=== PATIENT | male | born 1960 | race Caucasian/White ===

== ENCOUNTER 2019-02-16 19:00 | Outpatient (CLI) | payer OTHER | END 2019-02-16 19:01 | disposition home or self-care (01) | LOC: SLEEPLAB 19:00 | PROVIDERS: ATTEND Family Medicine | DX: G47.33 Obstructive sleep apnea (adult) (pediatric) (principal); R06.83 Snoring | CPT/HCPCS: 95806 ==

== ENCOUNTER 2019-04-08 19:30 | Outpatient (CLI) | payer OTHER | END 2019-04-08 19:31 | disposition home or self-care (01) | LOC: SLEEPLAB 19:30 | PROVIDERS: ATTEND Family Medicine | DX: G47.33 Obstructive sleep apnea (adult) (pediatric) (principal); R06.83 Snoring; R09.02 Hypoxemia | CPT/HCPCS: 95810 ==

== ENCOUNTER 2020-02-25 15:54 | Inpatient (IN) | payer OTHER ==
[~2020-02-25 15:54] MED LIST: Iopamidol 370 76% 100 ML VIAL ONE; Iopamidol 370 76% 50 ML VIAL FS ONE
[2020-02-25 16:07] LABS: Hemoglobin 14.9 g/dL (14.0-18.0); Mean Corpuscular HGB CONC 32.9 g/dL (32.0-36.0); Mean Corpuscular Hemoglobin 31.3 pg (27.0-31.0); Mean Corpuscular Volume 95.1 fL (78.0-98.0); RBC Distribution Width 12.7 % (11.5-14.5); Red Blood Cell (RBC) Count 4.77 mill/uL (4.70-6.10); White Blood Cell (WBC) Count 14.7 thou/uL (4.8-10.8)
[2020-02-25 16:22] LABS: Band 1 % (5-11); Eosinophils 3 % (0-10); Lymphocytes 22 % (21-51); MDiff Complete? YES; Monocytes 9 % (0-10); Neutrophil 61 % (42-75); Platelet Clumps SLIGHT; Platelet Morphology Comment PLT clumps seen-ADEQ; RBC Morphology Normal; Reactive Lymphocytes 4 % (0-10)
[2020-02-25 16:23] LABS: ALT (SGPT) 17 U/L (8-55); AST (SGOT) 19 U/L (5-34); Albumin 4.4 g/dL (3.5-5.0); Alkaline Phosphatase 44 U/L (40-110); Anion Gap 20 mmol/L (10-20); BUN (Urea Nitrogen) 16 mg/dL (8.4-25.7); Bilirubin, Total 0.4 mg/dL (0.2-1.2); Calc. Creatinine Clearance 0 mL/min (70-130); Calcium 9.2 mg/dL (7.8-10.44); Carbon Dioxide 17 mmol/L (22-29); Chloride 103 mmol/L (98-107); Estimated GFR-MDRD 61; Globulin 3.1 g/dL (2.4-3.5); Glucose 127 mg/dL (70-105); Protein, Total 7.5 g/dL (6.0-8.3); Sodium 136 mmol/L (136-145)
[2020-02-25 16:29] LABS: Mean Platelet Volume 7.6 fL (7.4-10.4); Platelet Count 213 thou/uL (130-400)
[2020-02-25 16:36] LABS: INR-International Normal Ratio 1.2
[2020-02-25 16:46] LABS: CKMB 1.6 ng/mL (0-6.6)
[2020-02-25 16:51] LABS: PTT Greater than 250.0 sec (22.9-36.1)
[2020-02-25] MEDS ORDERED: Mag-Al 1200 mg/1200 mg/30 ML UDCUP PO PRN (17:14)
[2020-02-25] MEDS ORDERED: Milk Of Magnesia 30 ML UDCUP PO PRN (17:14)
[2020-02-25 18:34] VITALS: BMI 23.5
[2020-02-25] MEDS: Sodium Chloride 0.9% 1,000 ML IV SCH (18:36)
[2020-02-25] MEDS: TICAGRELOR 90 MG TABLET PO SCH (20:49)
[2020-02-25 22:36] LABS: CKMB 224.3 ng/mL (0-6.6); Troponin I 39.249 ng/mL (< 0.028)
[2020-02-26] MEDS: Sodium Chloride 0.9% 1,000 ML IV SCH (01:00)
[2020-02-26 04:57] LABS: #Basophils 0.1 thou/uL (0.0-0.2); #Eosinphils 0.1 thou/uL (0.0-0.7); #Lymphocytes 1.8 thou/uL (1.20-3.40); #Monocytes 0.9 thou/uL (0.11-0.59); #Neutrophils 9.2 thou/uL (1.40-6.50); %Basophils 0.5 % (0.0-1.0); %Lymphocytes 14.9 % (21.0-51.0); %Monocytes 7.3 % (0.0-10.0); %Neutrophils 76.4 % (42.0-75.0); Hemoglobin 12.9 g/dL (14.0-18.0); Mean Corpuscular HGB CONC 33.1 g/dL (32.0-36.0); Mean Corpuscular Hemoglobin 31.1 pg (27.0-31.0); Mean Platelet Volume 8.7 fL (7.4-10.4); Platelet Count 178 thou/uL (130-400); RBC Distribution Width 12.7 % (11.5-14.5); Red Blood Cell (RBC) Count 4.15 mill/uL (4.70-6.10)
[2020-02-26 05:29] LABS: ALT (SGPT) 51 U/L (8-55); AST (SGOT) 153 U/L (5-34); Albumin 3.7 g/dL (3.5-5.0); Alkaline Phosphatase 38 U/L (40-110); Anion Gap 14 mmol/L (10-20); BUN (Urea Nitrogen) 10 mg/dL (8.4-25.7); Bilirubin, Total 0.4 mg/dL (0.2-1.2); Calc. Creatinine Clearance 89 mL/min (70-130); Calcium 8.3 mg/dL (7.8-10.44); Carbon Dioxide 20 mmol/L (22-29); Chloride 106 mmol/L (98-107); Estimated GFR-MDRD 86; Globulin 2.4 g/dL (2.4-3.5); Glucose 102 mg/dL (70-105); Potassium 4.1 mmol/L (3.5-5.1); Protein, Total 6.1 g/dL (6.0-8.3); Sodium 136 mmol/L (136-145)
[2020-02-26 05:40] LABS: CKMB 175.7 ng/mL (0-6.6); Troponin I 44.107 ng/mL (< 0.028)
[2020-02-26] MEDS ORDERED: Prevnar 13-Val Conj/PF 0.5 ML SYRINGE IM ONE (09:00)
[2020-02-26] MEDS ORDERED: FLU VACC QS2020-21(6MOS UP)/PF 60 MCG/0.5 ML SYRINGE IM ONE (09:00)
[2020-02-26] MEDS: TICAGRELOR 90 MG TABLET PO SCH ×2 (10:24→21:15)
[2020-02-26] MEDS ORDERED: Aspirin Chewable 81 MG TAB PO SCH (10:45)
--- NOTE | 2020-02-26 11:35 | CON ---
DATE OF CONSULTATION: HISTORY OF PRESENT ILLNESS: Ervin Padilla is a 59-year-old gentleman, admitted last night with chest pain, went to the cardiac labor arbitrator hearing office. Please review the Cardiology's note. He is now in the ICU with a pacemaker for bradycardia. The patient has a previous history of tobacco abuse, at least a pack a day and substance abuse. He has a history of sleep apnea, mild case, but apparently did not go back for any titration. ALLERGIES: ERYTHROMYCIN. PAST MEDICAL HISTORY: hypertension. PAST SURGICAL HISTORY: Recent catheterization. 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 HOME MEDICATIONS: None. REVIEW OF SYSTEMS: Otherwise, negative. PHYSICAL EXAMINATION: VITAL SIGNS: Pulse is 44, blood pressure 100/60, saturations . GENERAL: He is in no distress. CHEST: No wheezing. No crackles. CARDIAC: Normal S1, S2. No gallops. ABDOMEN: Soft. NEUROLOGIC: Awake, alert, and responsive. LABORATORY DATA: White count 12,000, H and H 12 and 39, platelet count 178. Lytes are normal. Troponin is elevated. BNP is 52. Chest x-ray, none done. ASSESSMENT: 1. Status post abnormal EKG, emergency cardiac cath. 2. Bradycardia. PLAN: Disposition as per Cardiology. Pulmonary is going to follow while in the ICU. Advised to refrain from smoking. He is advised to try and get himself on AutoPAP versus return back to the lab for CPAP titration. Consultation note, 70 minutes, 50% direct patient care. Job ID: [id number]
--- NOTE | 2020-02-26 12:59 | HP ---
CHIEF COMPLAINT: Acute WA. HISTORY OF PRESENT ILLNESS: Mr. Padilla is a very pleasant 59-year-old gentleman, who recently presented with acute-onset chest pain. This occurred 1 hour prior to presentation. He had ST-segment elevation noted inferiorly. PAST MEDICAL HISTORY: Tobacco abuse, hypertension. SOCIAL HISTORY: Positive tobacco use. 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 HOME MEDICATIONS: None. REVIEW OF SYSTEMS: A 10-point review of systems is reviewed as above, otherwise negative. PHYSICAL EXAMINATION: GENERAL: Patient is a pleasant 59-year-old gentleman, who is in no acute distress. The patient appears their stated age. VITAL SIGNS: Blood pressure 110/70, pulse 80, respirations 20. NEUROLOGIC: The patient is alert and oriented x3 with no focal neurologic deficits. HEENT: Sclerae without icterus. Mouth has moist mucous membranes with normal pallor. NECK: No JVD. Carotid upstroke brisk. No bruits bilaterally. LUNGS: Clear to auscultation with unlabored respirations. BACK: No scoliosis or kyphosis. CARDIAC: Regular rate and rhythm with normal S1 and S2. No S3 or S4 noted. No significant rubs, murmurs, thrills, or gallops noted throughout the precordium. PMI is not displaced. There is no parasternal heave. ABDOMEN: Soft, nontender, nondistended. No peritoneal signs present. No hepatosplenomegaly. No abnormal striae. EXTREMITIES: 2+ femoral and 2+ dorsalis pedis pulses. No cyanosis, clubbing, or edema. SKIN: No gross abnormalities. PERTINENT LABORATORY DATA: Pending. EKG shows normal sinus rhythm with acute ST-T wave changes noted inferiorly. IMPRESSION: Acute myocardial infarction. RECOMMENDATIONS: Mr. Padilla was brought urgently for coronary angiography. I discussed procedure in full detail with Mr. Padilla. Risks include, but not limited to the following: , stroke, [place], need for emergency surgery, loss of limb, bleeding, and infection, as well as a reaction to the dye causing kidney failure and needing long-term dialysis. I also discussed the risks of PCI to include all of the above including coronary dissection and perforation in addition to acute stent thrombosis and restenosis. All questions about the procedure were answered. Given the above, the patient agreed to proceed with coronary angiography and possible PCI. All questions answered. Given the above, the patient agreed to proceed with above procedure. Also, discussed drug coated versus nondrug coated stent placement. There were no contraindications. We will proceed if needed. Further recommendations pending the above. Job ID: [id number]
--- NOTE | 2020-02-26 13:03 | PRG ---
DATE OF SERVICE: 02/26/2020 SUBJECTIVE: Mr. Padilla is doing better. No current complaints of chest pain. Unfortunately, he remains bradycardic. His pacemaker intermittently beats per minute. OBJECTIVE: VITAL SIGNS: Blood pressure 143/62, pulse 44, temperature afebrile. General: The patient is a pleasant gentleman, in no acute distress, appears stated age. Head, Eyes, Ears, Nose and Throat: Sclerae without icterus. Mouth: Moist mucous membranes, normal palate. Neck: No jugular venous distention. Carotid upstroke is brisk. No bruits bilaterally. Lungs: Clear to auscultation. Heart: Regular rate and rhythm, normal S1 and S2. Abdomen: Soft, nontender, nondistended. Extremities: No edema. PERTINENT LABORATORY DATA: Hemoglobin 12.9, hematocrit 39.0, creatinine 0.9. Peak troponin 44. CK-MB downtrending from 224 down to 175. IMPRESSION: 1. Acute CT. 2. Tobacco abuse. 3. Hypertension. 4. Bradycardia. RECOMMENDATIONS: Unfortunately, Mr. Padilla is a currently intermittently pacer dependent. We will continue to monitor closely with a pacemaker. We will give him another 24 hours. I would suspect his own conduction system, will improve. We will continue Brilinta and aspirin. Brilinta will be discontinued and will place Plavix on discharge. Hold beta-medhat therapy. Blood pressure is stable on current treatment. Check echo. Job ID: [id number]
[2020-02-26] MEDS: Acetaminophen/Codeine 30-300mg Tablet PO PRN ×2 (18:21→22:30)
[2020-02-27] MEDS: Acetaminophen/Codeine 30-300mg Tablet PO PRN (06:26)
--- NOTE | 2020-02-27 09:03 | PRG ---
DATE OF SERVICE: 02/27/2020 SUBJECTIVE: Status post CO, status post bradycardia, but is much better this morning. His temporary pacemaker is removed. He is awake, alert, and responsive. No shortness of breath. OBJECTIVE: VITAL SIGNS: His sats , pulse 55, blood pressure 150/90, respiratory rate 18. CHEST: No wheezing. No crackles. CARDIAC: Normal S1, S2. No gallops. ABDOMEN: No masses. IMPRESSION: Status post acute myocardial infarction, status post cath, status post bradycardia, improved, former smoker. PLAN: Pulmonary piña, continue PT, supportive care. We will follow while in the ICU. He is on Brilinta and aspirin. Job ID: [id number]
[2020-02-27] MEDS: TICAGRELOR 90 MG TABLET PO SCH ×2 (10:22→21:21)
[2020-02-27] MEDS: Aspirin Chewable 81 MG TAB PO SCH (10:22)
--- NOTE | 2020-02-27 15:41 | PRG ---
DATE OF SERVICE: 02/27/2020 SUBJECTIVE: Mr. Padilla is doing well. No current complaints. His heart rate remains stable overnight. Pacemaker was removed today. OBJECTIVE: VITAL SIGNS: Heart rate 56, blood pressure 129/78, temperature afebrile. LUNGS: Clear to auscultation. HEART: Regular rate and rhythm. ABDOMEN: Soft, nontender, nondistended. EXTREMITIES: No edema. PERTINENT LABORATORY DATA: None today. IMPRESSION: 1. Acute myocardial infarction. 2. Tobacco abuse. RECOMMENDATIONS: Mr. Padilla is doing very well. No current complaints. We will continue aspirin in addition to Brilinta. Avoid beta-medhat therapy. We will review his echo. Anticipate discharge to home in the next day or two. Job ID: [id number]
--- NOTE | 2020-02-28 07:00 | EKG ---
Test Reason : Blood Pressure : / mmHG Vent. Rate : 050 BPM Atrial Rate : 050 BPM P-R Int : 064 ms QRS Dur : 160 ms QT Int : 504 ms P-R-T Axes : 000 -49 108 degrees QTc Int : 459 ms Electronic ventricular pacemaker When compared with ECG of 25-FEB-2020 15:56, (Unconfirmed) Electronic ventricular pacemaker has replaced Sinus rhythm Confirmed by NIRAJ ROMERO MD ([id number] on 02/28/2020 7:00:13 AM Referred By: NICK Confirmed By:NIRAJ ROMERO MD
[2020-02-28] MEDS: Aspirin Chewable 81 MG TAB PO SCH (08:36)
[2020-02-28] MEDS: TICAGRELOR 90 MG TABLET PO SCH (08:36)
[2020-02-28 16:44] VITALS: BP 150/75; TEMP 98.7
[2020-02-28] MEDS ORDERED: Clopidogrel Bisulfate 75 MG TAB PO SCH (17:15)
[2020-02-28] MEDS ORDERED: Atorvastatin Calcium 40 MG TAB PO SCH (21:00)
--- NOTE | 2020-02-29 07:57 | DIS ---
DATE OF ADMISSION: 02/25/2020 DATE OF DISCHARGE: 02/28/2020 DISCHARGE DIAGNOSIS: Acute myocardial infarction. PROCEDURE PERFORMED: 1. Coronary angiography. 2. Successful stent placement in the right coronary artery. COMPLICATIONS: None. HOSPITAL COURSE: Mr. Padilla is a very pleasant 59-year-old gentleman, who recently presented with acute myocardial infarction. He had a large right coronary artery that is occluded in the proximal to mid region. He underwent successful stent placement. He had a temporary pacemaker placed due to bradycardia. Pacemaker remained in place overnight and throughout the following day due to bradycardia. After 24 hours, it appeared he was not pacer dependent. This was then removed. He was transferred to telemetry monitoring. He ambulated successfully without issue or complaints. DISCHARGE MEDICATIONS: 1. Aspirin 81. 2. Atorvastatin 40 at bedtime. 3. Plavix 75 daily with first dose prior to discharge. 4. Avoid beta-medhat therapy, ANAMARIA inhibitor therapy and ARB due to bradycardia and mild hypotension. CONDITION ON DISCHARGE: Stable. FOLLOWUP: Follow up with Dr. Zeng in 1 to 2 weeks. Job ID: [id number]
--- NOTE | 2020-03-02 15:28 | EKG ---
Test Reason : Blood Pressure : / mmHG Vent. Rate : 042 BPM Atrial Rate : 042 BPM P-R Int : 128 ms QRS Dur : 086 ms QT Int : 440 ms P-R-T Axes : -04 048 086 degrees QTc Int : 367 ms Marked sinus bradycardia Inferior infarct , possibly acute Lateral injury pattern ACUTE IN / STEMI Consider right ventricular involvement in acute inferior infarct Abnormal ECG Confirmed by GEOVANI REECE, HERACLIO Rolon ([id number]), news videotape editor YEN BETTS ([id number]) on 03/02/2020 3:28:05 PM Referred By: Confirmed By:HERACLIO OLIVO MD
== END 2020-02-28 18:45 | disposition home or self-care (01) | DRG 247 ==
LOC: ERS 15:54 → CCL 16:09 → CCU 16:34 → 2NO 02-27 14:54
PROVIDERS: ADMIT Internal Medicine Cardiovascular Disease; ATTEND Internal Medicine Cardiovascular Disease
PROC: B2111ZZ Fluoroscopy of Multiple Coronary Arteries using Low Osmolar Contrast (ICD-10-PCS; principal; 2020-02-25)
PROC: 027035Z Dilation of Coronary Artery, One Artery with Two Drug-eluting Intraluminal Devices, Percutaneous Approach (ICD-10-PCS; 2020-02-25)
PROC: 02C03ZZ Extirpation of Matter from Coronary Artery, One Artery, Percutaneous Approach (ICD-10-PCS; 2020-02-25)
PROC: 4A023N7 Measurement of Cardiac Sampling and Pressure, Left Heart, Percutaneous Approach (ICD-10-PCS; 2020-02-25)
DX: I21.3 ST elevation (STEMI) myocardial infarction of unspecified site (principal); F17.210 Nicotine dependence, cigarettes, uncomplicated; R00.1 Bradycardia, unspecified; I10 Essential (primary) hypertension; Z88.1 Allergy status to other antibiotic agents
CPT/HCPCS: 33210; 76942; 80053; 82550; 82553; 83880; 84484; 85025; 85347; 85610; 85730; 92941; 93005; 93010; 93306; 93454; 93798; C1757; C1874; C9606; J1644; Q9967